=== PATIENT | male | born 1980 | race Caucasian/White ===

== ENCOUNTER 2023-04-25 15:38 | Emergency (ER) | payer OTHER ==
[~2023-04-25] VITALS: Ht 188 cm; Wt 82.6 kg
[2023-04-25 15:45] VITALS: BP 139/85; PULSE 58; RESP 18; TEMP 98; O2SAT 99
[2023-04-25] MEDS ORDERED: CEPH-588 PO (16:51)
[2023-04-25] MEDS ORDERED: SULF-59 PO (16:51)
[2023-04-25] MEDS ORDERED: IBUP-2213 PO (16:51)
[2023-04-25 17:05] VITALS: BP 139/85; PULSE 58; RESP 18; TEMP 98; O2SAT 99
== END 2023-04-25 17:06 | disposition home or self-care (01) ==
LOC: MED 15:38
DX: L02.415 Cutaneous abscess of right lower limb (principal); L02.414 Cutaneous abscess of left upper limb; Z79.899 Other long term (current) drug therapy
CPT/HCPCS: 90471; 90715; 99283